=== PATIENT | male | born 1960 | race Caucasian/White ===

== ENCOUNTER 2020-02-11 08:51 | Inpatient (IN) | payer OTHER ==
[~2020-02-11] VITALS: Ht 172.7 cm; Wt 84.9 kg
--- NOTE | 2020-02-11 09:42 | NUR ---
MASTER STEAM YACHT: PT AMBULATORY WITH STEADY GAIT TO ROOM AT THIS TIME. JOANNA
[2020-02-11] MEDS ORDERED: SODIUM CHLORIDE FLUSH 10ML SYR IVF ONE (10:00)
[2020-02-11] MEDS ORDERED: ASPIRIN 81 MG TABLET CHEW PO ONE (10:00)
[2020-02-11] MEDS ORDERED: ASPIRIN 81 MG TABLET CHEW ONE (10:06)
[2020-02-11 10:40] LABS: BASOPHILS # (AUTO) 0.07 x10^3/uL (0-0.1); BASOPHILS % (AUTO) 1 % (0-1); EOSINOPHILS # (AUTO) 0.05 x10^3/uL (0-0.4); EOSINOPHILS % (AUTO) 1 % (1-7); LYMPHOCYTES # (AUTO) 1.16 x10^3/uL (1-3.4); LYMPHOCYTES % (AUTO) 14 % (22-44); MD NO; MEAN CORPUSCULAR HGB CONC 34.1 g/dL (33.2-36.2); MEAN CORPUSCULAR VOLUME 88.1 fL (81-97); MEAN PLATELET VOLUME 8.4 fL (7.4-10.4); MONOCYTES # (AUTO) 0.58 x10^3/uL (0.2-0.8); MONOCYTES % (AUTO) 7 % (2-9); NEUTROPHILS # (AUTO) 6.17 x10^3/uL (1.8-6.8); NEUTROPHILS % (AUTO) 77 % (42-75); PLATELET COUNT 290 x10^3/uL (130-400); RED BLOOD COUNT 5.46 x10^6/uL (4.38-5.82); RED CELL DISTRIBUTION WIDTH 12.8 % (9.4-14.8)
[2020-02-11 10:52] LABS: ALANINE AMINOTRANSFERASE 28 U/L (12-78); ALBUMIN 4.2 g/dL (3.4-5.0); CALCIUM 9.9 mg/dL (8.5-10.1); CREATININE 1.27 mg/dL (0.7-1.3)
[2020-02-11 10:56] LABS: ALKALINE PHOSPHATASE 109 U/L (45-117); BILIRUBIN,TOTAL 0.4 mg/dL (0.2-1.0); TOTAL PROTEIN 8.2 g/dL (6.4-8.2)
[2020-02-11 10:59] LABS: ANION GAP 4 mmol/L (5-15); CHLORIDE 107 mmol/L (98-107)
[2020-02-11 11:01] LABS: TROPONIN I 0.877 ng/mL (0.000-0.045)
[2020-02-11] MEDS ORDERED: HEPARIN 25,000 UNITS/250ML PMX 250 ML ONE (11:24)
[2020-02-11] MEDS ORDERED: HEPARIN 5,000 UNITS/ML, 1ML ONE (11:24)
[2020-02-11] MEDS ORDERED: HEPARIN 5,000 UNITS/ML, 1ML IV PRN (11:30)
[2020-02-11] MEDS ORDERED: HEPARIN 25,000 UNITS/250ML PMX 250 ML IV PRN (11:30)
[2020-02-11] MEDS ORDERED: HEPARIN 5,000 UNITS/ML, 1ML IV ONE (11:30)
[2020-02-11] MEDS ORDERED: NITROGLYCERIN OINT 2%, 1GM TP ONE ×2 (11:30→11:56)
--- NOTE | 2020-02-11 12:00 | NUR ---
DR ROCHE AT THE BEDSIDE
--- NOTE | 2020-02-11 12:26 | NUR ---
HEATHER PARKER AT BEDSIDE FOR RECHECK/EXPLANATION OF POC. PT AO X 4. SKIN PWD. RESP EVEN AND UNLABORED. NO CHANGE TO NEURO STATUS AT THIS TIME. CALL LIGHT WITHIN REACH. WILL CONT TO MONITOR PT.
[2020-02-11] MEDS ORDERED: ENALAPRILAT 1.25 MG/ML, 2ML IV PRN (12:30)
[2020-02-11] MEDS ORDERED: SODIUM CHLORIDE 0.9% 1,000 ML IV SCH ×2 (12:30→15:07)
[2020-02-11] MEDS ORDERED: ACETAMINOPHEN 650 MG/20.3 ML UDC PO PRN (12:30)
[2020-02-11] MEDS ORDERED: morphine SULFATE 10 MG/ML, 1ML IV PRN (12:30)
[2020-02-11] MEDS ORDERED: BISACODYL 5 MG EC TABLET PO PRN (12:30)
[2020-02-11] MEDS ORDERED: ZOLPIDEM 5MG TABLET PO PRN (12:30)
[2020-02-11] MEDS ORDERED: ONDANSETRON 2MG/ML, 2ML IVPush PRN (12:30)
[2020-02-11] MEDS ORDERED: NITROGLYCERIN 0.4 MG/SPRAY SL PRN (12:30)
--- NOTE | 2020-02-11 13:18 | NUR ---
REPORT TO WERO RETANA
[2020-02-11 13:24] LABS: LDL/HDL RATIO 3.4 (0.5-3.0)
[2020-02-11 13:25] VITALS: BP 146/86
[2020-02-11] MEDS ORDERED: ATOR10TA9 PO (13:45)
[2020-02-11] MEDS ORDERED: AMLO10TA8 PO (13:45)
[2020-02-11] MEDS ORDERED: LOSA25TA25 PO (13:45)
[2020-02-11] MEDS ORDERED: FENTANYL PF 100 MCG/2ML ONE (14:04)
[2020-02-11] MEDS ORDERED: VERAPAMIL 2.5 MG/ML, 2ML ONE (14:04)
[2020-02-11] MEDS ORDERED: HEPARIN 1,000 UNITS/ML, 10ML ONE (14:04)
[2020-02-11] MEDS ORDERED: LIDOCAINE-MPF 1%, 5ML ONE (14:04)
[2020-02-11] MEDS ORDERED: MIDAZOLAM 1 MG/ML, 5ML ONE (14:04)
[2020-02-11] MEDS ORDERED: TICAGRELOR 90 MG TABLET ONE (14:04)
[2020-02-11] MEDS ORDERED: BIVALIRUDIN 250 MG ONE (14:04)
[2020-02-11] MEDS: SODIUM CHLORIDE 0.9% 500 ML IV SCH ×2 (15:30→20:30)
[2020-02-11 16:33] VITALS: BP 145/87
[2020-02-11] MEDS: METOPROLOL TARTRATE 25 MG TAB PO SCH (16:34)
[2020-02-11 20:18] VITALS: BP 130/84
[2020-02-11] MEDS: SODIUM CHLORIDE FLUSH 10ML SYR IVF SCH (21:00)
[2020-02-11] MEDS: TICAGRELOR 90 MG TABLET PO SCH (21:42)
[2020-02-11] MEDS: ATORVASTATIN 80 MG TABLET PO SCH (21:42)
[2020-02-12 00:58] VITALS: BP 95/58
[2020-02-12] MEDS: SODIUM CHLORIDE 0.9% 500 ML IV SCH ×2 (01:30→06:30)
[2020-02-12 05:52] VITALS: BP 109/72
[2020-02-12] MEDS: METOPROLOL TARTRATE 25 MG TAB PO SCH ×2 (05:57→18:17)
[2020-02-12 06:15] LABS: ANION GAP 6 mmol/L (5-15); CALCIUM 8.9 mg/dL (8.5-10.1); CHLORIDE 109 mmol/L (98-107); CREATININE 1.15 mg/dL (0.7-1.3)
[2020-02-12 08:55] VITALS: BP 126/81
[2020-02-12] MEDS: SODIUM CHLORIDE FLUSH 10ML SYR IVF SCH ×2 (09:00→20:57)
[2020-02-12] MEDS ORDERED: LOSARTAN 25MG TABLET PO SCH (09:00)
[2020-02-12] MEDS: ASPIRIN 81 MG TABLET EC PO SCH (09:01)
[2020-02-12] MEDS: TICAGRELOR 90 MG TABLET PO SCH ×2 (09:01→20:57)
[2020-02-12] MEDS: LOSARTAN 25MG TABLET PO SCH (09:01)
[2020-02-12] MEDS ORDERED: DIPHENHYDRAMINE 50 MG CAPSULE PO PRN (10:00)
[2020-02-12 14:25] VITALS: BP 129/84
[2020-02-12 20:00] VITALS: BP 129/86
[2020-02-12] MEDS: ATORVASTATIN 80 MG TABLET PO SCH (20:57)
[2020-02-13 03:55] VITALS: BP 119/80
[2020-02-13] MEDS: METOPROLOL TARTRATE 25 MG TAB PO SCH (05:56)
[2020-02-13 08:40] VITALS: BP 117/81
[2020-02-13] MEDS: TICAGRELOR 90 MG TABLET PO SCH (08:44)
[2020-02-13] MEDS: SODIUM CHLORIDE FLUSH 10ML SYR IVF SCH (08:44)
[2020-02-13] MEDS: ASPIRIN 81 MG TABLET EC PO SCH (08:44)
[2020-02-13] MEDS: LOSARTAN 25MG TABLET PO SCH (08:44)
[2020-02-13] MEDS ORDERED: ATOR-2 PO (09:13)
[2020-02-13] MEDS ORDERED: ASPI81TA45 PO (09:13)
[2020-02-13] MEDS ORDERED: TICA90TA PO (09:13)
[2020-02-13] MEDS ORDERED: METO25TA35 PO (09:13)
== END 2020-02-13 10:30 | disposition home or self-care (01) | DRG 247 ==
LOC: ED 10:33 → EDIP 12:13 → 5SO 13:15 → DCLOUNGE 02-13 10:23
PROVIDERS: ADMIT Internal Medicine Cardiovascular Disease; ATTEND Internal Medicine Cardiovascular Disease
PROC: 027034Z Dilation of Coronary Artery, One Artery with Drug-eluting Intraluminal Device, Percutaneous Approach (ICD-10-PCS; principal; 2020-02-11)
PROC: 4A023N7 Measurement of Cardiac Sampling and Pressure, Left Heart, Percutaneous Approach (ICD-10-PCS; 2020-02-11)
PROC: B2111ZZ Fluoroscopy of Multiple Coronary Arteries using Low Osmolar Contrast (ICD-10-PCS; 2020-02-11)
PROC: B2151ZZ Fluoroscopy of Left Heart using Low Osmolar Contrast (ICD-10-PCS; 2020-02-11)
DX: I21.4 Non-ST elevation (NSTEMI) myocardial infarction (principal); I10 Essential (primary) hypertension; I25.110 Atherosclerotic heart disease of native coronary artery with unstable angina pectoris; E78.5 Hyperlipidemia, unspecified; Z82.49 Family history of ischemic heart disease and other diseases of the circulatory system
CPT/HCPCS: 36415; 71045; 80048; 80053; 80061; 83690; 83880; 84484; 85014; 85018; 85025; 85379; 85520; 93005; 93306; G0378; J0583; J1644; J2250; J3010; J7040

== ENCOUNTER 2021-04-23 16:44 | Emergency (ER) | payer OTHER ==
[~2021-04-23] VITALS: Ht 172.7 cm; Wt 80.0 kg
[~2021-04-23 16:44] MED LIST: AMLO-211 PO; ASPI81TA45 PO; ATOR-2 PO; ATOR10TA9 PO; LOSA25TA25 PO; METO25TA35 PO; TICA90TA PO
[2021-04-23] MEDS ORDERED: ASPIRIN 81 MG TABLET CHEW PO ONE (17:00)
[2021-04-23 18:03] LABS: BASOPHILS % (AUTO) 0 % (0-1); EOSINOPHILS % (AUTO) 0 % (1-7); LYMPHOCYTES % (AUTO) 5 % (22-44); MEAN CORPUSCULAR HEMOGLOBIN 30.5 pg (27.5-34.5); MEAN PLATELET VOLUME 8.9 fL (7.4-10.4); MONOCYTES % (AUTO) 7 % (2-9); NEUTROPHILS % (AUTO) 88 % (42-75); PLATELET COUNT 184 x10^3/uL (130-400); RED BLOOD COUNT 4.86 x10^6/uL (4.38-5.82); RED CELL DISTRIBUTION WIDTH 12.5 % (9.4-14.8)
[2021-04-23 18:15] LABS: ALBUMIN 3.3 g/dL (3.4-5.0); ANION GAP 8 mmol/L (5-15); CALCIUM 8.4 mg/dL (8.5-10.1); CHLORIDE 95 mmol/L (98-107)
[2021-04-23 18:21] LABS: ALANINE AMINOTRANSFERASE 29 U/L (12-78); ALKALINE PHOSPHATASE 74 U/L (45-117); BILIRUBIN,TOTAL 0.7 mg/dL (0.2-1.0); CREATININE 1.35 mg/dL (0.7-1.3); TROPONIN I < 0.015 ng/mL (0.000-0.045)
--- NOTE | 2021-04-23 20:25 | NUR ---
Preceptor RN: first contact with patient. Patient presents to ER c/o cough, fever, fatigue, SOB, weakness, and muscle pain. Patient is coughing up yellow sputum. Symptoms since Thursday night. Patient is not vaccinated for COVID and states COVID neg on Thursday. Patient is coughing frequently. Respirations even and unlabored; speaking in full word sentences.
[2021-04-23] MEDS ORDERED: ACETAMINOPHEN 500 MG TABLET ONE (20:45)
[2021-04-23] MEDS ORDERED: FILTER 0.22 MICRON IV ONE (21:00)
[2021-04-23] MEDS ORDERED: ACETAMINOPHEN 500 MG TABLET PO ONE (21:00)
[2021-04-23] MEDS ORDERED: CASIRIVIMAB 600 MG, IMDEVIMAB (REGN10987) 600 MG in SODIUM CHLORIDE 0.9% 250 ML IVPB ONE (21:00)
[2021-04-23] MEDS ORDERED: IBUPROFEN 200 MG TABLET PO ONE (22:00)
--- NOTE | 2021-04-23 22:30 | NUR ---
REGENERON INFUSION COMPLTED. PATIENT DENIES ANY SIDE EFFECTS. NAD AT THIS TIME, EMMA
[2021-04-23] MEDS ORDERED: IBUPROFEN 600 MG TABLET ONE (22:46)
[2021-04-23 23:03] VITALS: BP 104/65
--- NOTE | 2021-04-23 23:43 | NUR ---
Patient given discharge instructions and they have confirmed that they understand the instructions. Patient ambulatory with steady gait. NAD, all questions answered appropriately, denies additional needs at this time. No personal belongings left in room after discharge.
== END 2021-04-23 23:51 | disposition home or self-care (01) ==
LOC: ED 21:37
DX: U07.1 COVID-19 (principal); J40 Bronchitis, not specified as acute or chronic; R00.0 Tachycardia, unspecified; I10 Essential (primary) hypertension; Z98.61 Coronary angioplasty status
CPT/HCPCS: 36415; 71045; 80053; 83605; 84145; 84484; 85025; 87040; 93005; 99285; M0243; U0003; U0005